=== PATIENT | female | born 1960 | race Caucasian/White ===

== ENCOUNTER 2018-04-26 03:43 | Observation (INO) ==
--- NOTE | 2018-04-26 04:11 | Emergency Department Report ---
General Adult HPI - General Stated complaint: shaky, headache, <Louis Liang - 04/26/18 04:11> Time Seen by Provider: 04/26/18 03:54 <Louis Liang - 04/26/18 04:11> Source: patient <Louis Liang - 04/26/18 05:24> Mode of arrival: ambulatory <Louis Liang - 04/26/18 05:24> Limitations: no limitations <Louis Liang 04/26/18 05:24> - History of Present Illness HPI narrative: 57-year-old female presents to the emergency department with the chief complaint of a cough productive of thick yellow mucus. Patient also notes feeling shaky. She is experiencing a generalized frontal headache without radiation. Headache is moderate. It is dull. She does not note any exacerbating or remitting factors. She also notes feeling like she is experiencing heartburn. She was at home when her symptoms began approximately 4 hours prior to arrival to the emergency department today other than the cough. Symptoms have been persistent in nature since onset. No other complaints or associated symptoms. She is still actively smoking. <Louis Liang - 04/26/18 18:40> - Related Data Home Medications Medication Instructions Recorded Confirmed Esomeprazole Magnesium [Nexium] 40 mg PO DAILY #0 06/06/10 04/26/18 Claritin Liqui-Gel (Loratadine) 10 10 mg PO Q24H PRN 07/30/17 04/26/18 mg capsule Vitamin D3 (cholecalciferol) 1,000 1,000 unit PO DAILY cap 07/30/17 04/26/18 unit capsule multivitamin tablet 1 tab PO DAILY tab 07/30/17 04/26/18 Aspirin *EC* [Ecotrin] 162 mg PO DAILY 04/26/18 04/26/18 Fluticasone Nasal [place] [Flonase] 2 spray INTRANASAL PRN 04/26/18 04/26/18 Previous Rx's Medication Instructions Recorded Advair Diskus (Fluticasone 250 1 puff INH Q12H #3 each 04/16/17 mcg-salmeterol 50 mcg)dose powdr for inhalation Pravachol (pravastatin) 40 mg 20 mg PO DAILY #15 tab 04/16/17 tablet Prozac (fluoxetine) 20 mg capsule 60 mg PO DAILY #90 cap 04/16/17 albuterol sulfate HFA 90 90 mcg INH Q6H #8 g 04/16/17 mcg/actuation aerosol inhaler <Louis Liang 04/26/18 04:11> Allergies Allergy/AdvReac Type Severity Reaction Status Date / Time Cephalosporins Allergy Unknown Verified 04/26/18 04:14 Penicillins Allergy Unknown Verified 04/26/18 04:14 Prednisone / Solumedrol AdvReac Severe Headache Uncoded 04/26/18 04:52 <Louis Liang 04/26/18 04:11> Review of Systems Constitutional: Denies: fever, weakness <Louis Liang 04/26/18 05:24> Eyes: Denies: eye pain, vision change <Luois Liang 04/26/18 05:24> ENT: Denies: ear pain, throat pain <Louis Liang 04/26/18 05:24> Cardiovascular: Denies: chest pain, palpitations <Louis Liang 04/26/18 05: 24> Respiratory: Reports: cough. Denies: dyspnea, wheezes <Louis Liang 05:24> Gastrointestinal: Denies: abdominal pain, nausea, vomiting, diarrhea <Louis Liang 04/26/18 05:24> Genitourinary: Denies: urgency, dysuria <Louis Liang 04/26/18 05:24> Musculoskeletal: Denies: back pain, arthralgia <Louis Liang 04/26/18 05:24 > Integumentary: Denies: erythema, rash <Louis Liang 04/26/18 05:24> Neurological: Reports: headache. Denies: numbness, paresthesias <Louis Liagn 04/26/18 05:24> Psychiatric: Denies: anxiety, depression <Louis Liang 04/26/18 05:24> Endocrine: Denies: polydipsia, polyuria <Louis Liang 04/26/18 05:24> Hematological/Lymphatic: Denies: easy bruising, lymphadenopathy <Louis Liang 04/26/18 05:24> Allergic/Immunologic: Denies: facial swelling, urticaria <Louis Liang 05:24> [facility] Patient Stated Medical History Other HEENT WEAR GLASSES Bronchitis Yes Chronic Obstructive Pulmonary Yes Disease (COPD) Sleep Apnea Yes Gastroesophageal Reflux Yes Disease Hx Kidney Stones Yes Other Musculoskeletal Yes: ARTHRITIS Depression Yes Clinic Medical History (Last Updated 07/30/17 @ 09:37 by MAEGAN Wilder) Depression (Chronic Medical) GERD (gastroesophageal reflux disease) (Chronic Medical) Chronic bronchiolitis (Resolved Medical) <March,Gus 04/26/18 07:22> Clinic Medical History (Last Updated 07/30/17 @ 09:37 by MAEGAN Wilder) Depression (Chronic Medical) GERD (gastroesophageal reflux disease) (Chronic Medical) Chronic bronchiolitis (Resolved Medical) <Louis Liang 04/26/18 04:11> Surgical History: Hysterectomy - 2002. Left Shoulder Repair - 2003. Septum repair. Hernia repair - 2008 <Louis Liang 04/26/18 04:11> Family History: Family History (Last Updated 07/30/17 @ 09:41 by MAEGAN Wilder) Father High blood pressure Alcoholism Brother FH: mental illness Maternal Grandmother Diabetes Maternal Grandfather Stroke Unknown High blood pressure Stomach cancer Glaucoma <March,Gus 04/26/18 07:22> Family History (Last Updated 07/30/17 @ 09:41 by Valentina Hatch Abigail) Father High blood pressure Alcoholism Brother FH: mental illness Maternal Grandmother Diabetes Maternal Grandfather Stroke Unknown High blood pressure Stomach cancer Glaucoma <Louis Liang 04/26/18 04:11> - Social History Smoking status: Current every day smoker <Louis Liang 04/26/18 04:11> Packs-years: 25 <Louis Liang 04/26/18 04:11> Substance use type: does not use <Louis Liang 04/26/18 05:24> Alcohol intake frequency: does not drink <Louis Liang 04/26/18 04:11> Household members: spouse <Louis Liang 04/26/18 04:11> Physical Exam - Limitations Limitations: no limitations <Louis Liang 04/26/18 05:24> - General General appearance: alert, in no apparent distress <Louis Liang 04/26/18 05:24> - Normal Exams: Head:: Normocephalic without trauma <LiangLouis 04/26/18 05:24> Eyes:: Pupils are PERRLA w/ EOMI, No scleral icterus, irritation, or foreign bodies noted <LiangLouis [facility] 04/26/18 05:24> ENMT:: No facial trauma, nasal exudates, pharyngeal erythema, or exudates are noted <Louis Liang [facility] 04/26/18 05:24> Dental: No fractured, loose, or missing teeth noted <LiangLouis [facility] 04/26/18 05:24> Neck:: Full range of motion, without adenopathy, JVD, bruits or thyromegaly < LiangLouis 04/26/18 05:24> Chest/Respirations:: Clear all mosquera (Diminished bilat. ), with good airflow, and symmetry bilaterally <LiangLouis 04/26/18 18:40> Cardiovascular:: Regular rate and rhythm, without murmur or gallop, Pulses 2+ all extremities, capillary refill, <2 seconds all extremities <LiangLouis 04/26/18 05:24> Abdomen:: Bowel sounds positive, soft, non-tender, non-distended, no hepatosplenomegaly, masses or bruits noted <LiangLouis 04/26/18 05:24> Lymphatic:: No lymphadenopathy, or lymphedema noted <Louis Liang 04/26/18 05:24> Musculoskeletal:: No tenderness, or deformity noted, good range of motion, all extremities <Louis Liang 04/26/18 05:24> Integumentary:: No rashes, hives, or bruising noted, hair and nails, without abnormality <Louis Liang [facility] 04/26/18 05:24> Neurological:: Patient is alert, and oriented, cranial nerves, motor/sensory/ cerebellar, exams w/o gross deficits, to observation <Louis Liang [facility] 05:24> Psychiatric:: Patient exhibits, appropriate attention, emotion and affect < Louis Liang 04/26/18 05:24> Course - Consultations Consultation #1: Dr. Bobby: Will admit to obs for further eval and treatment. <March,Gus 04/26/18 07:22> Time: 07:10 <March,Gus 04/26/18 07:22> Vital Signs Temperature 98.5 F 04/26/18 03:52 Pulse Rate 101 H 04/26/18 03:52 Respiratory Rate 24 04/26/18 03:52 Blood Pressure 132/72 04/26/18 03:52 Pulse Oximetry 95 04/26/18 03:52 Temperature 98.5 F 04/26/18 03:52 Pulse Rate 88 04/26/18 05:15 Respiratory Rate 15 04/26/18 05:15 Blood Pressure 115/61 04/26/18 05:15 Pulse Oximetry 95 04/26/18 05:15 <eb 04/26/18 06:41> Medical Decision Making - MDM Narrative Medical decision making narrative: Patient care turned over to Dr. Gus Lazar at 0600. She was given 500 mL of normal saline intravenously. She was given Levaquin 750 mg IV times one. She was given acetaminophen 1 g orally times one with improvement of headache. She was given a GI cocktail with resolution of heart burn. Right lower lobe infiltrate is suspected on chest x-ray. Sepsis markers and blood cultures were added at this point. Patient was given Levaquin 750 mg iv x 1 at 0622 when sepsis was considered. She was never hypotensive in the emergency department and her lactate was less than 4. <Louis Liang - 04/26/18 18:40> After review of pts presentation and labs with Dr. Liang, pt does meet SIRS/ Sepsis criteria. Pt has known, underlying COPD; appears to have a new RLL PNA. PORT score of 85 (class III). Contacted hospitalist regarding admission for tx of PNA and COPD exacerbation. Will admit for further eval and treatment (obs at this time). <MarchMikeyGus 04/26/18 07:22> - Differential Diagnosis UTI, PNA, Viral Syndrome, Metabolic disorder <Louis Liang - 04/26/18 06:32> - Lab Data Result diagrams: 04/26/18 04:48 04/26/18 04:48 <Louis Liang - 04/26/18 04:11> Lab Results 06/04/26/18 04/26/18 Range/Units 04:48 04:48 05:30 WBC 21.0 H (4.5-11.0) T/MM3 RBC 4.64 (4.00-5.20) M/MM3 Hgb 13.6 (12-16) GM/DL Hct 40.1 (36-46) % MCV 86.4 (80-100) UM3 MCH 29.3 (26-34) UUG MCHC 33.9 (31-37) GM/DL RDW Std Deviation 42.0 (36.9-50.2) FL Plt Count 277 (130-400) T/MM3 MPV 11.4 (9.4-12.4) UM3 Immature Gran % (Auto) Not performed Neut % (Auto) Not performed Lymph % (Auto) Not performed [place] % (Auto) Not performed Eos % (Auto) Not performed Baso % (Auto) Not performed Neut # (Auto) Not performed Lymph # (Auto) Not performed [place] # (Auto) Not performed Eos # (Auto) Not performed Baso # (Auto) Not performed Abs Immat Gran (auto) Not performed Neutrophils % (Manual) 73.0 H (33-66) % Band Neutrophils % 3.0 (0-6) % Lymphocytes % (Manual) 19.0 L (23-45) % Monocytes % (Manual) 3.0 (0-9.0) % Eosinophils % (Manual) 1.0 (0-4) % Basophils % (Manual) 1.0 (0-2) % Neutrophils # (Manual) 15.3 H (1.8-7.7) T/MM3 Band Neutrophils # 0.6 T/MM3 Lymphocytes # (Manual) 4.0 (1-4.8) T/MM3 Monocytes # (Manual) 0.6 (0-0.8) T/MM3 Eosinophils # (Manual) 0.2 (0-0.5) T/MM3 Basophils # (Manual) 0.2 (0-0.2) T/MM3 RBC Morph Comment Normal Turbidity < 20 (0-20) Sodium 145 (136-146) MEQ/L Potassium 3.4 L (3.6-5) MEQ/L Chloride 106 (98-107) MEQ/L Carbon Dioxide 22 (22-30) MEQ/L Anion Gap 17 H (5-15) meq/L BUN 10.0 (7-17) MG/DL Creatinine 1.0 (0.7-1.2) mg/dL GFR Calculation 58 BUN/Creatinine Ratio 10 (6-26) RATIO Glucose 201 H (65-110) MG/DL Calculated Osmolality 284 H (261-280) MOSM/KG Calcium 9.2 (8.4-10.2) MG/DL Total Bilirubin 0.30 (0.20-1.30) MG/DL Icterus Index < 2 (0-7) AST 18 (14-36) U/L ALT 24 (1-35) U/L Alkaline Phosphatase 75 (38-126) U/L Troponin I < 0.012 (0-0.12) ng/ml Total Protein 7.8 (6.3-8.2) g/dL Albumin 4.6 (3.5-5.0) g/dL Globulin 3.2 (2.4-3.6) G/DL Albumin/Globulin Ratio 1.4 (1.1-2.2) RATIO Plasma Lactate (0.6-2.2) MMOL/L Specimen Hemolysis < 15 (0-25) Ur Collection Type Urine, void-cc/notcc Urine Color Yellow (YELLOW) Urine Clarity Clear Urine pH 6.0 (5.0-8.0) Ur Specific [place] 1.010 L (1.015-1.025) Urine Protein Negative (NEGATIVE) Urine Glucose (UA) Negative (NEGATIVE) Urine Ketones Negative (NEGATIVE) Urine Occult Blood Negative (NEGATIVE) Urine Nitrate Negative (NEGATIVE) Urine Bilirubin Negative (NEGATIVE) Urine Urobilinogen 0.2 (NORMAL) EU/DL Ur Leukocyte Esterase Negative (NEGATIVE) Urinalysis Comment Microscopic not ind. 18 Range/Units 05:59 WBC (4.5-11.0) T/MM3 RBC (4.00-5.20) M/MM3 Hgb (12-16) GM/DL Hct (36-46) % MCV (80-100) UM3 MCH (26-34) UUG MCHC (31-37) GM/DL RDW Std Deviation (36.9-50.2) FL Plt Count (130-400) T/MM3 MPV (9.4-12.4) UM3 Immature Gran % (Auto) Neut % (Auto) Lymph % (Auto) [place] % (Auto) Eos % (Auto) Baso % (Auto) Neut # (Auto) Lymph # (Auto) [place] # (Auto) Eos # (Auto) Baso # (Auto) Abs Immat Gran (auto) Neutrophils % (Manual) (33-66) % Band Neutrophils % (0-6) % Lymphocytes % (Manual) (23-45) % Monocytes % (Manual) (0-9.0) % Eosinophils % (Manual) (0-4) % Basophils % (Manual) (0-2) % Neutrophils # (Manual) (1.8-7.7) T/MM3 Band Neutrophils # T/MM3 Lymphocytes # (Manual) (1-4.8) T/MM3 Monocytes # (Manual) (0-0.8) T/MM3 Eosinophils # (Manual) (0-0.5) T/MM3 Basophils # (Manual) (0-0.2) T/MM3 RBC Morph Comment Turbidity (0-20) Sodium (136-146) MEQ/L Potassium (3.6-5) MEQ/L Chloride (98-107) MEQ/L Carbon Dioxide (22-30) MEQ/L Anion Gap (5-15) meq/L BUN (7-17) MG/DL Creatinine (0.7-1.2) mg/dL GFR Calculation BUN/Creatinine Ratio (6-26) RATIO Glucose (65-110) MG/DL Calculated Osmolality (261-280) MOSM/KG Calcium (8.4-10.2) MG/DL Total Bilirubin (0.20-1.30) MG/DL Icterus Index (0-7) AST (14-36) U/L ALT (1-35) U/L Alkaline Phosphatase (38-126) U/L Troponin I (0-0.12) ng/ml Total Protein (6.3-8.2) g/dL Albumin (3.5-5.0) g/dL Globulin (2.4-3.6) G/DL Albumin/Globulin Ratio (1.1-2.2) RATIO Plasma Lactate 1.2 (0.6-2.2) MMOL/L Specimen Hemolysis (0-25) Ur Collection Type Urine Color (YELLOW) Urine Clarity Urine pH (5.0-8.0) Ur Specific [place] (1.015-1.025) Urine Protein (NEGATIVE) Urine Glucose (UA) (NEGATIVE) Urine Ketones (NEGATIVE) Urine Occult Blood (NEGATIVE) Urine Nitrate (NEGATIVE) Urine Bilirubin (NEGATIVE) Urine Urobilinogen (NORMAL) EU/DL Ur Leukocyte Esterase (NEGATIVE) Urinalysis Comment <04/26/18 06:41> - Radiology Data Radiology results reviewed: Yes: I reviewed the patient's radiology results. < 04/26/18 06:41> CXR: RLL opacities, worse than on prior films. Concern for bronchiectasis. CT Head: IMPRESSION: 1. Mild periventricular leukomalacia identified that can reflect chronic ischemic changes.No acute intracranial pathology. 2. Paranasal sinus disease noted as described above. <04/26/18 06:41> CXR - RLL infiltrate otherwise no acute processes. CT Head - Pending. <Louis Liang 04/26/18 06:32> - EKG Data EKG #1 EKG results narrative: Sinus rhythm. 99 beats per minute. No STEMI. <Louis Liang 04/26/18 05:24> Disposition Clinical Impression: Tobacco dependence, GERD with esophagitis RLL pneumonia Qualifiers: Pneumonia type: due to unspecified organism Qualified Code(s): J18.1 - Lobar pneumonia, unspecified organism COPD (chronic obstructive pulmonary disease) Qualifiers: COPD type: COPD with acute exacerbation Qualified Code(s): J44.1 - Chronic obstructive pulmonary disease with (acute) exacerbation Headache Qualifiers: Headache type: other headache syndrome Qualified Code(s): G44.89 - Other headache syndrome <Louis Liang 04/26/18 18:40> Disposition: 02 To [facility] <Louis Liang 04/26/18 18:40> Print Language: Maori <Louis Liang 04/26/18 18:40> Condition: Improved <Louis Liang 04/26/18 18:40> Instructions: <Louis Liang 04/26/18 04:11> Prescriptions: No Action Aspirin *EC* [Ecotrin] 162 mg PO DAILY Fluticasone Nasal [place] [Flonase] 2 spray INTRANASAL PRN Esomeprazole Magnesium [Nexium] 40 mg PO DAILY #0 Advair Diskus (Fluticasone 250 mcg-salmeterol 50 mcg)dose powdr for inhalation 1 puff INH Q12H #3 each Prozac (fluoxetine) 20 mg capsule 60 mg PO DAILY #90 cap Pravachol (pravastatin) 40 mg tablet 20 mg PO DAILY #15 tab albuterol sulfate HFA 90 mcg/actuation aerosol inhaler 90 mcg INH Q6H #8 g Vitamin D3 (cholecalciferol) 1,000 unit capsule 1,000 unit PO DAILY cap Claritin Liqui-Gel (Loratadine) 10 mg capsule 10 mg PO Q24H PRN PRN Reason: Allergy Symptoms multivitamin tablet 1 tab PO DAILY tab <Louis Liang - 04/26/18 04:11> Referrals: Jayson Green MD [Primary Care Provider] - <Louis Liang - 04/26/18 04:11> Forms: <Louis Liang - 04/26/18 04:11> Time of Disposition: 07:22 <Gus Lazar - 04/26/18 07:22> - Seen By: physician <Gus Lazar - 04/26/18 07:22>
[2018-04-26] MEDS: SALINE FLUSH 10ml SYRINGE IVF PRN ×2 (04:29→10:48)
[2018-04-26] MEDS ORDERED: GI COCKTAIL 30 ML PO ONE (04:33)
[2018-04-26] MEDS ORDERED: ACETAMINOPHEN 500 MG TABLET PO SCH (06:30)
[2018-04-26] MEDS ORDERED: ALBUTEROL/IPRATROPIUM 2.5mg-0.5mg/3ml NEB AEROSOL ONE (06:39)
[2018-04-26] MEDS: LEVOFLOXACIN PB 750 MG/150 ML BAG IV SCH (06:43)
--- NOTE | 2018-04-26 08:21 | History & Physical Report ---
History of Present Illness Date: 04/26/18 Chief complaint: "I just don't feel right." HPI: Patient is a 57 yo [address] sees [address]. 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 She reports overnight around midnight she started feeling bad - was shaky, had horrible heartburn and a bad headache. Says she took her Bp and pulse and was very tachycardic. She's been "coughing up stuff" the past few days and has had some SOA, eunice with using the stairs. Has chronic cough. Smoker and COPD. Uses CPAP at night for WYATT. Has h /o recurrent bronchitis. Uses Advair and rarely needs/uses her albuterol inhaler. States she had a horrible headache the last time she received steroids and does not want to take them again. Review of Systems All systems PM: 10-point ROS was reviewed, no additional remarkable complaints except (h/a is better since receiving Tylenol in ER, GERD sxs better following GI cocktail. Cough. Mildly SOA.) Past Medical History Medical History: Medical History (Last Updated 07/30/17 @ 09:37 by Valentina Hatch [facility]) Depression GERD (gastroesophageal reflux disease) Chronic bronchiolitis Surgical History: Hysterectomy - 2002. Left Shoulder Repair - 2003. Surgery for deviated septum. 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) Current residence: Apartment/Private Home Social history: Dr gNuyen - PCP Medications Home Medications Medication Instructions Recorded Confirmed Type Esomeprazole Magnesium [Nexium] 40 mg PO DAILY #0 06/06/10 04/26/18 History Advair Diskus (Fluticasone 250 1 puff INH Q12H #3 each 04/16/17 04/26/18 Rx mcg-salmeterol 50 mcg)dose powdr for inhalation Pravachol (pravastatin) 40 mg 20 mg PO DAILY #15 tab 04/16/17 04/26/18 Rx tablet Prozac (fluoxetine) 20 mg capsule 60 mg PO DAILY #90 cap 04/16/17 04/26/18 Rx albuterol sulfate HFA 90 90 mcg INH Q6H #8 g 04/16/17 04/26/18 Rx mcg/actuation aerosol inhaler Claritin Liqui-Gel (Loratadine) 10 10 mg PO Q24H PRN 07/30/17 04/26/18 History mg capsule Vitamin D3 (cholecalciferol) 1,000 1,000 unit PO DAILY cap 07/30/17 04/26/18 History unit capsule multivitamin tablet 1 tab PO DAILY tab 07/30/17 04/26/18 History Aspirin *EC* [Ecotrin] 162 mg PO DAILY 04/26/18 04/26/18 History Fluticasone Nasal [place] [Flonase] 2 spray INTRANASAL PRN 04/26/18 04/26/18 History Allergies Allergy/AdvReac Type Severity Reaction Status Date / Time Cephalosporins Allergy Unknown Verified 04/26/18 04:14 Penicillins Allergy Unknown Verified 04/26/18 04:14 Prednisone / Solumedrol AdvReac Severe Headache Uncoded 04/26/18 04:52 Exam Vital Signs: Temperature 98.5 F 04/26/18 03:52 Pulse Rate 83 04/26/18 08:06 Respiratory Rate 20 04/26/18 08:06 Blood Pressure 121/71 04/26/18 08:06 Pulse Oximetry 94 04/26/18 08:06 - Constitutional Present: no acute distress, well nourished, well developed - Routine HEENT Exam Head: Present: normocephalic, atraumatic Eye: Present: EOMI, PERRL ENT: Present: mucous membranes moist, oropharynx clear - Routine Neck Exam Present: supple. Absent: lymphadenopathy, thyromegaly - Routine Respiratory Exam Comments: mostly clear (has had nebulizer tx in ER) -slight exp wheezing - Routine Cardiovascular Exam Present: RRR, no murmur - Routine Abdominal Exam Present: soft, normoactive bowel sounds. Absent: tenderness, distended - Routine Extremities Exam Present: no edema, normal capillary refill - Routine Skin Exam Present: dry, warm - Routine Neurological Exam Present: alert, oriented X3, CN II-XII intact - Routine Psychiatric Exam Present: normal affect, cooperative Results - Labs CBC & Chem 7: 04/26/18 04:48 04/26/18 04:48 Labs: Laboratory Tests 04/26/18 04/26/18 04/26/18 04:48 05:59 05:59 Troponin I < 0.012 Plasma Lactate 1.2 Procalcitonin < 0.05 - Imaging and Cardiology CT scan - head Additional comments: paranasal sinus disease noted. No acute intracranial pathology. Assessment and Plan Assessment and Plan: Assessment CAP SIRS: Leukocytosis, tachypnea. Normal lactate Hyperglycemia - POA (FBS 201) Hypokalemia - POA (3.4) COPD/Chronic bronchiolitis WYATT - uses CPAP GERD Acute headache Depression Obesity BMI 39.9 Chronic tobacco use Plan Admit, OBS. Labs and imaging (CXR/head CT) from ER reviewed. Levaquin IV q 24 hrs - 1st dose given in ER. NS 500cc's given in ER. Will give another 500cc's. Duonebs, Acapella, guaifenesin for respiratory sxs. Delsym prn cough. Sputum culture. Nicotine patch. RT consult for smoking cessation. Home CPAP at night. Check A1C given her elevated glucose in ER (pt reports she was fasting). Repeat CBC, BMP in am to follow blood counts, renal function and electrolytes. SCD's for VTE ppx. Full Code. PCP - Dr. Nguyen DVT Prophylaxis: SCD's Resuscitation Status: Full Code - Physician Narrative Physician: Gwyn Rosales MD Narrative: Date: 04/26/18 Time: 1040 Have independently interviewed and examined pt. Chart reviewed. Case discussed with ED physician and my POSTPARTUM NURSE. Care plan developed with my supervision; agree with above. Presents to ED for evaluation of 'not feeling right.' Woke this morning with episode of severe 'reflux.' Was feeling feverish/chills intermittent, like a fever had broke. Notes ROBERTO-fullness/pressure/pounding to ears. Not having increased sinus congestion. Recently having intermittent cough, productive of thick green sputum that is hard to clear. No chest wall or ab pain from coughing. Bowel function stable. Appetite stable. No trauma or injury. Evaluated in ED. WBC with elevation. Maintaining saturation on RA. HR 90-103. CXR suspicious for infiltrate. With concern for pneumonia and leukocytosis, patient placed in OBS for further evaluation and treatment. Lungs: decreased bilaterally, congested but not with wheezing. No respiratory distress on RA currently. CV: regular AB: soft nt/nd MSE: awake alert Plan: OBS. Continue Levaquin initiated in ED. Neb treatments of DuoNeb and budesonide. Acapella to loosen secretions. RT for tobacco cessation. IV Protonix due to her GERD and PPI use. Monitor oxygenation status. Continue home CPAP (pt adherent at home). Monitor lab. Care to return to PCP at discharge. Hospital Course Summary Disclaimer: The visit summary below is not to be considered part of the above Progress Note. Hospital Course: 04/26/18 Admit, OBS. Labs and imaging (CXR/head CT) from ER reviewed. Levaquin IV q 24 hrs - 1st dose given in ER. NS 500cc's given in ER. Will give another 500cc's. DuoNeb, Acapella, guaifenesin for respiratory sxs. Delsym prn cough. Sputum culture. Nicotine patch. RT consult for smoking cessation. Home CPAP at night. Check A1C given her elevated glucose in ER (pt reports she was fasting). Repeat CBC, BMP in am to follow blood counts, renal function and electrolytes. SCD's for VTE ppx. Full Code. PCP - Dr. Nguyen
[2018-04-26 08:35] VITALS: BMI 40.5
[2018-04-26] MEDS ORDERED: NICOTINE PATCH REMOVAL TD PRN (08:40)
[2018-04-26] MEDS ORDERED: NICOTINE 21 MG PATCH TD PRN (08:40)
[2018-04-26] MEDS ORDERED: NS 500 ML IV ONE (08:47)
[2018-04-26] MEDS ORDERED: ACETAMINOPHEN 500 MG TABLET PO PRN (08:50)
[2018-04-26] MEDS ORDERED: DEXTROMETHORPHAN 30 MG/5 ML ORAL LIQUID PO PRN (08:50)
--- NOTE | 2018-04-26 09:21 | CT Scan Report ---
Indication: ROBERTO PROCEDURE: CT head/brain wo con: Encounter: Initial Comparison: None Technique: Axial CT images through the head were performed without contrast. Iterative Reconstruction dose reducing technique was utilized. FINDINGS: The ventricles are of normal size, shape, and contour for the patient's age. There are scattered areas of low attenuation in the white matter which most likely represent changes from chronic microvascular ischemia. The brainstem, cerebellum, and cerebral hemispheres otherwise have a normal morphology and CT attenuation. There is no evidence of midline displacement. No hemorrhage, signs of acute territorial stroke, mass effect, mass lesions, or edema is evident. The visualized portions of the skull base, midface, and calvarium demonstrate no abnormality. Chronic opacification of the right maxillary sinus. Ethmoid air cell disease. The tympanic and mastoid cavities appear normal. IMPRESSION: No acute intracranial abnormality or hemorrhage. Sinus disease. There is a preliminary report by [facility]. .
--- NOTE | 2018-04-26 09:23 | XRay Report ---
Indication: pain PROCEDURE: XR chest 1V: Encounter: Initial Comparison: March 17, 2015 Findings: Lungs are hyperinflated with mild interstitial prominence. No lobar pneumonia. No pleural effusion or pneumothorax. Heart size, pulmonary vascularity and mediastinal contours are within normal limits. Impression: No acute cardiopulmonary disease. .
[2018-04-26] MEDS: GUAIFENESIN LA 600 MG TABLET PO SCH ×2 (10:14→22:15)
[2018-04-26] MEDS ORDERED: ALBUTEROL/IPRATROPIUM 2.5mg-0.5mg/3ml NEB AEROSOL PRN (10:22)
[2018-04-26] MEDS: BUDESONIDE INH.SOLN 0.5mg/2ml NEB AEROSOL SCH ×2 (10:43→19:05)
[2018-04-26] MEDS: ALBUTEROL/IPRATROPIUM 2.5mg-0.5mg/3ml NEB AEROSOL SCH ×3 (10:45→19:05)
[2018-04-26] MEDS: PANTOPRAZOLE 40 MG INJECTION IVP SCH (10:48)
[2018-04-26] MEDS ORDERED: IBUPROFEN 800 MG TABLET PO PRN (13:19)
[2018-04-27] MEDS: LEVOFLOXACIN PB 750 MG/150 ML BAG IV SCH (06:06)
[2018-04-27] MEDS: ALBUTEROL/IPRATROPIUM 2.5mg-0.5mg/3ml NEB AEROSOL SCH ×2 (07:15→10:27)
[2018-04-27] MEDS: BUDESONIDE INH.SOLN 0.5mg/2ml NEB AEROSOL SCH (07:15)
[2018-04-27 08:14] VITALS: BP 129/73; PULSE 75; TEMP 97
[2018-04-27] MEDS ORDERED: ASPIRIN *EC* 81 MG TABLET PO SCH (09:00)
[2018-04-27] MEDS ORDERED: FLUoxetine 20 MG CAPSULE PO SCH (09:00)
[2018-04-27] MEDS: PANTOPRAZOLE 40 MG INJECTION IVP SCH (09:27)
[2018-04-27] MEDS: GUAIFENESIN LA 600 MG TABLET PO SCH (09:27)
--- NOTE | 2018-04-27 10:26 | Progress Note ---
- Date 04/27/18 Subjective: F/U: Pneumonia, Leukocytosis Improving. Still note cough/congestion, but not SOA. No f/c. Eating/drinking well. Ambulating without unsteadiness. No ab pain n/v. Objective Vital signs: Temperature 97.0 F 04/27/18 08:00 Pulse Rate 75 04/27/18 08:00 Respiratory Rate 18 04/27/18 08:00 Blood Pressure 129/73 04/27/18 08:00 Pulse Oximetry 90 04/27/18 08:00 Height/Weight/BMI: Height 1.78 m Weight 129.8 kg Body Mass Index 40.5 - Constitutional Present: well nourished, well developed, obese, cooperative - Routine HEENT Exam Head: Present: normocephalic, atraumatic Eye: Present: EOMI, PERRL ENT: Present: mucous membranes moist - Routine Respiratory Exam Present: decreased breath sounds, distant breath sounds, diminished air movement. Absent: rales, respiratory distress, rhonchi, wheezes, crackles - Routine Cardiovascular Exam Present: RRR, no murmur - Routine Abdominal Exam Present: soft, normoactive bowel sounds, non distended, non tender - Routine Extremities Exam Present: pulses intact. Absent: cyanosis, clubbing - Routine Skin Exam Present: dry, warm - Routine Neurological Exam Present: alert, oriented X3, CN II-XII intact, moving all extremities, vision grossly intact, hearing grossly intact, normal speech. Absent: motor deficit, altered mental status - Routine Psychiatric Exam Present: normal affect, normal thought process, cooperative Results - Labs CBC & Chem 7: 04/27/18 04:20 04/27/18 04:20 Microbiology Results: Microbiology 04/26/18 18:22 Sputum, Expectorated Gram Stain - Preliminary Assessment and Plan Assessment and Plan: Assessment CAP Leukocytosis Hyperglycemia - POA (FBS 201) Hypokalemia (POA) - resolved COPD/Chronic bronchiolitis WYATT - uses CPAP GERD Acute headache Depression Chronic tobacco use Obesity BMI 39.9 Plan WBC normalized at 10.9. No temp elevation. Vitals stable. Breathing well on RA. Will discharge to home in stable condition. Levaquin 500mg po daily for 5 days. Mucinex DM BID for 1 week, then as needed for cough/congestion. Use Acapella QID for 1 week, then as needed for congestion. Encourage smoking cessation. Discussed elevation of blood sugars and A1c - suspect developing DM. Will need further outpatient treatment as per PCP. F/U with Dr Green in 1 week. May return to work on 05/01/18. See orders for details. Time spent with patient care and discharge greater than 30 minutes. DVT Prophylaxis: SCD's Resuscitation Status: Full Code - Physician Narrative Physician: Gwyn Rosales MD Narrative: Date: 04/27/18 Time: 1023 Hospital Course Summary Disclaimer: The visit summary below is not to be considered part of the above Progress Note. Hospital Course: 04/26/18 Admit, OBS. Labs and imaging (CXR/head CT) from ER reviewed. Levaquin IV q 24 hrs - 1st dose given in ER. NS 500cc's given in ER. Will give another 500cc's. DuoNeb, Acapella, guaifenesin for respiratory sxs. Delsym prn cough. Sputum culture. Nicotine patch. RT consult for smoking cessation. Home CPAP at night. Check A1C given her elevated glucose in ER (pt reports she was fasting). Repeat CBC, BMP in am to follow blood counts, renal function and electrolytes. SCD's for VTE ppx. Full Code. PCP - Dr. Green 04/27/18 WBC normalized at 10.9. No temp elevation. Vitals stable. Breathing well on RA. Will discharge to home in stable condition. Levaquin 500mg po daily for 5 days. Mucinex DM BID for 1 week, then as needed for cough/congestion. Use Acapella QID for 1 week, then as needed for congestion. Encourage smoking cessation. Discussed elevation of blood sugars and A1c - suspect developing DM. Will need further outpatient treatment as per PCP. F/U with Dr Green in 1 week. May return to work on 05/01/18. See orders for details.
--- NOTE | 2018-04-27 10:40 | Work/School Release ---
Work/School Release - Date Date: 04/27/18 - Work Release Remain off work/school for:: Samia Kolb was hospitalized at [facility] from 04/26/18 until . Jon may return to work on 05/01/18.
--- NOTE | 2018-04-27 10:44 | Discharge Summary ---
Discharge Information Date of admission: 04/26/18 07:19 Anticipated date of discharge: 04/27/18 Attending Physician: Gwyn Rosales MD Primary care physician: Jayson Green MD Discharge diagnosis CAP Associated conditions and complications Leukocytosis - resolved Hyperglycemia - POA Hypokalemia (POA) - resolved COPD/Chronic bronchiolitis WYATT - uses CPAP GERD Acute headache Depression Chronic tobacco use Obesity BMI 39.9 - Laboratory Labs: Admit Lab 04/26/18 04:48 WBC 21.0 H Hgb 13.6 Hct 40.1 MCV 86.4 Plt Count 277 Neutrophils % (Manual) 73.0 H Band Neutrophils % 3.0 Lymphocytes % (Manual) 19.0 L Monocytes % (Manual) 3.0 Eosinophils % (Manual) 1.0 Basophils % (Manual) 1.0 Admit Lab 04/26/18 04/26/18 04:48 05:59 Sodium 145 Potassium 3.4 L Chloride 106 Carbon Dioxide 22 Anion Gap 17 H BUN 10.0 Creatinine 1.0 GFR Calculation 58 BUN/Creatinine Ratio 10 Glucose 201 H Calculated Osmolality 284 H Calcium 9.2 Total Bilirubin 0.30 AST 18 ALT 24 Alkaline Phosphatase 75 Troponin I < 0.012 Total Protein 7.8 Albumin 4.6 Globulin 3.2 Albumin/Globulin Ratio 1.4 Plasma Lactate 1.2 A1c 04/26/18 04:47 Hemoglobin A1c 7.1 H 04/27/18 04:20 04/27/18 04:20 - Microbiology Microbiology 04/26/18 18:22 Sputum, Expectorated Gram Stain - Preliminary - Radiology Radiology: Date of Exam: 04/26/18 Type of Exam: XR chest 1V Findings: Lungs are hyperinflated with mild interstitial prominence. No lobar pneumonia. No pleural effusion or pneumothorax. Heart size, pulmonary vascularity and mediastinal contours are within normal limits. Impression: No acute cardiopulmonary disease. Date of Exam: 04/26/18 Type of Exam: CT head/brain wo con FINDINGS: The ventricles are of normal size, shape, and contour for the patient' s age. There are scattered areas of low attenuation in the white matter which most likely represent changes from chronic microvascular ischemia. The brainstem , cerebellum, and cerebral hemispheres otherwise have a normal morphology and CT attenuation. There is no evidence of midline displacement. No hemorrhage, signs of acute territorial stroke, mass effect, mass lesions, or edema is evident. The visualized portions of the skull base, midface, and calvarium demonstrate no abnormality. Chronic opacification of the right maxillary sinus. Ethmoid air cell disease. The tympanic and mastoid cavities appear normal. IMPRESSION: No acute intracranial abnormality or hemorrhage. Sinus disease. History of Present Illness HPI: Patient is a 57 yo female [address] sees Dr. 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 She reports overnight around midnight she started feeling bad - was shaky, had horrible heartburn and a bad headache. Says she took her Bp and pulse and was very tachycardic. She's been "coughing up stuff" the past few days and has had some SOA, eunice with using the stairs. Has chronic cough. Smoker and COPD. Uses CPAP at night for WYATT. Has h /o recurrent bronchitis. Uses Advair and rarely needs/uses her albuterol inhaler. States she had a horrible headache the last time she received steroids and does not want to take them again. For complete details of the H&P refer to that document. Objective Vital signs: Temperature 97.0 F 04/27/18 08:00 Pulse Rate 75 04/27/18 08:00 Respiratory Rate 14 04/27/18 10:28 Blood Pressure 129/73 04/27/18 08:00 Pulse Oximetry 93 04/27/18 10:28 Height/Weight/BMI: Height 1.78 m Weight 129.8 kg Body Mass Index 40.5 Hospital Course This is a general summary of the patient's hospital course. For more details refer to the complete medical record. Hospital course: 04/26/18 Admit, OBS. Labs and imaging (CXR/head CT) from ER reviewed. Levaquin IV q 24 hrs - 1st dose given in ER. NS 500cc's given in ER. Will give another 500cc's. DuoNeb, Acapella, guaifenesin for respiratory sxs. Delsym prn cough. Sputum culture. Nicotine patch. RT consult for smoking cessation. Home CPAP at night. Check A1C given her elevated glucose in ER (pt reports she was fasting). Repeat CBC, BMP in am to follow blood counts, renal function and electrolytes. SCD's for VTE ppx. Full Code. PCP - Dr. Green 04/27/18 WBC normalized at 10.9. No temp elevation. Vitals stable. Breathing well on RA. Will discharge to home in stable condition. Levaquin 500mg po daily for 5 days. Mucinex DM BID for 1 week, then as needed for cough/congestion. Use Acapella QID for 1 week, then as needed for congestion. Encourage smoking cessation. Discussed elevation of blood sugars and A1c - suspect developing DM. Will need further outpatient treatment as per PCP. F/U with Dr Green in 1 week. May return to work on 05/01/18. See orders for details. Time spent with patient: discharge greater than 30 minutes Resuscitation Status: Full Code Discharge Plan - Discharge Disposition Discharge Date: 04/27/18 *Condition: Improved Reason For Visit (Visit label in EMR): RLL PNA, COPD exacerbation - Discharge Medications *Discharge Medications: New Guaifenesin/Dm [Mucinex Dm] 1 tab PO BID #1 box Levofloxacin [Levaquin] 500 mg PO DAILY #5 tab Continue Aspirin *EC* [Ecotrin] 162 mg PO DAILY Fluticasone Nasal Bostic [Flonase] 2 spray INTRANASAL PRN Esomeprazole Magnesium [Nexium] 40 mg PO DAILY #0 Advair Diskus (Fluticasone 250 mcg-salmeterol 50 mcg)dose powdr for inhalation 1 puff INH Q12H #3 each Prozac (fluoxetine) 20 mg capsule 60 mg PO DAILY #90 cap Pravachol (pravastatin) 40 mg tablet 20 mg PO DAILY #15 tab albuterol sulfate HFA 90 mcg/actuation aerosol inhaler 90 mcg INH Q6H #8 g Vitamin D3 (cholecalciferol) 1,000 unit capsule 1,000 unit PO DAILY cap Claritin Liqui-Gel (Loratadine) 10 mg capsule 10 mg PO Q24H PRN PRN Reason: Allergy Symptoms multivitamin tablet 1 tab PO DAILY tab - Discharge Packet/Instructions *Diet: Low carbohydrate diet, 2000 KCAL *Activity: As tolerated; return to work on 05/01/18 *Pain Management/Treatment: Continue prior home pain medicaitons *Wound Care: n/a Additional Instructions: Use Mucinex DM twice a day for 1 week to decreased cough/congestion, then may use as needed. Use Acapella 4 times a day for 1 week to decrease congestion, then as needed. *Expected Signs/Symptoms: Decreasing cough/congestion. Improvement of breathing. *Notify Physician if: Temp >100.4. Increasing shortness of air. *During Business Hours Contact: Dr Green *After Business Hours Contact: Call [facility] [place] and have [place]CP contacted. *Pending Lab/Results: No Pending Lab - Referrals/Follow Up *Referrals/Follow Up: Jayson Green MD [Primary Care Provider] - 1 Week (Hospital follow up for pneumonia; suspect DM - need to set up outpatient dietiary ed and diabetes ed. ) - Patient Handouts Patient Handouts: COPD (Chronic Obstructive Pulmonary Disease) (GEN), Pneumonia (GEN) - Dismissal Complete Discharge Instructions are:: Complete Physician Narrative - Narrative Physician: Gwyn Rosales MD Attestation Narrative: Date: 04/27/18 Time: 1041 I have independently interviewed and examined patient prior to discharge. See my progress note for details. Medically stable for discharge to home.
[2018-04-27 14:55] VITALS: RESP 14; O2SAT 93
== END 2018-04-27 11:54 | disposition home or self-care (01) ==
LOC: ED 03:43 → EDHOLD 03:43 → MED 08:30
PROVIDERS: ADMIT Hospitalist; ATTEND Hospitalist